=== PATIENT | female | born 1985 | race American Indian/Alaskan Native ===

== ENCOUNTER 2016-08-07 17:19 | Emergency (ER) | payer OTHER ==
[2016-08-07 18:58] LABS: Eosinophils % (Auto) 0.8 % (0.0-4.3); Hematocrit 35.5 % (30.3-42.9); Hemoglobin 11.1 gm/dl (10.1-14.3); Mean Corpuscular HGB Conc 31 % (30-34); Mean Corpuscular Volume 73 fl (79-97); Platelet Count 290 K/mm3 (140-440); Red Blood Count 4.88 M/mm3 (3.65-5.03); Red Cell Distribution Width 18.2 % (13.2-15.2); White Blood Count 8.2 K/mm3 (4.5-11.0)
[2016-08-07 19:15] LABS: Mean Corpuscular Hemoglobin 23 pg (28-32)
[2016-08-07 23:13] VITALS: BP 129/87
--- NOTE | 2016-08-08 00:15 | Emergency Department Report ---
HPI - General Chief Complaint: Vaginal Bleeding Time Seen by Provider: 08/07/16 23:58 - HPI HPI: Room 7 The patient is a 31-year-old female presenting with a chief complaint of vaginal bleeding. The patient states her last menstrual cycle occurred 2015. The patient states she is but has not yet seen an CHEMICAL ANALYTICAL SAMPLER. The patient states last week she had some vaginal spotting but 2 days ago she developed heavier vaginal bleeding. The patient states she's gone through approximately one panty liner a day. Patient states she also developed pelvic cramping. The patient states blood change from dark brown to red in color. The patient states she has noticed increased vaginal bleeding that has passed clots but no tissue. The patient complained of lower abdominal pain and left side pain associated with the vaginal bleeding. The patient states she has never seen an CHEMICAL ANALYTICAL SAMPLER or had an ultrasound for this Location: Pelvis Duration: [see above] Quality: Cramping Severity: Moderate Modifying factors: [see above] Context: [see above] Mode of transportation: [not driving] ED Past Medical Hx - Past Medical History Previous Medical History?: No - Surgical History Past Surgical History?: No - Family History Family history: no significant - Social History Smoking Status: Never Smoker Substance Use Type: None ED Review of Systems ROS: Stated complaint: 5 WKS PREG/BLEEDING/CRAMPS Other details as noted in HPI Comment: All other systems reviewed and negative Constitutional: denies: chills, fever Eyes: denies: eye pain, eye discharge, vision change ENT: denies: ear pain, throat pain Respiratory: denies: cough, shortness of breath, wheezing Cardiovascular: denies: chest pain, palpitations Endocrine: no symptoms reported Gastrointestinal: abdominal pain Genitourinary: abnormal menses Musculoskeletal: denies: back pain, joint swelling, arthralgia Skin: denies: rash, lesions Neurological: denies: headache, weakness, paresthesias Psychiatric: denies: anxiety, depression Hematological/Lymphatic: denies: easy bleeding, easy bruising Physical Exam - Physical Exam Vital Signs: Vital Signs 08/07/16 08/07/16 17:58 23:11 Temperature 98.2 F 97.6 F Pulse Rate 81 89 Respiratory 16 18 Rate Blood Pressure 152/114 Blood Pressure 129/87 [Right] O2 Sat by Pulse 100 100 Oximetry Physical Exam: GENERAL: The patient is well-developed well-nourished female lying on stretcher not appearing to be in acute distress. [] HEENT: Normocephalic. Atraumatic. Extraocular motions are intact. Patient has moist mucous membranes. NECK: Supple. Trachea midline CHEST/LUNGS: Clear to auscultation. There is no respiratory distress noted. HEART/CARDIOVASCULAR: Regular. There is no tachycardia. There is no gallop rub or murmur. ABDOMEN: Abdomen is soft. Patient has normal bowel sounds. There is no abdominal distention. SKIN: There is no rash. There is no edema. There is no diaphoresis. NEURO: The patient is awake, alert, and oriented. The patient is cooperative. The patient has normal speech MUSCULOSKELETAL: There is no evidence of acute injury. ED Course Vital Signs 08/07/16 08/07/16 17:58 23:11 Temperature 98.2 F 97.6 F Pulse Rate 81 89 Respiratory 16 18 Rate Blood Pressure 152/114 Blood Pressure 129/87 [Right] O2 Sat by Pulse 100 100 Oximetry ED Medical Decision Making - Lab Data Result diagrams: 08/07/16 18:32 Laboratory Tests 08/07/16 08/07/16 08/07/16 18:32 18:32 18:35 WBC 8.2 RBC 4.88 Hgb 11.1 Hct 35.5 MCV 73 L MCH 23 L MCHC 31 RDW 18.2 H Plt Count 290 Lymph % (Auto) 35.2 H [place] % (Auto) 11.4 H Eos % (Auto) 0.8 Baso % (Auto) 1.0 Lymph # 2.9 [place] # 0.9 H Eos # 0.1 Baso # 0.1 Seg Neutrophils % 51.6 Seg Neutrophils # 4.2 HCG, Quant 281.0 H Blood Type O NEGATIVE Antibody Screen Negative - Radiology Data Radiology results: report reviewed (pelvic ultrasound), image reviewed (pelvic ultrasound) Pelvic ultrasound (read by radiologist)-the uterus has a normal size. There is no evidence of a intrauterine at this time. Both ovaries have a normal appearance with a small dominant cyst identified on the left ovary. The findings may indicate multiple etiologies including early . The patient will need to be followed with serial beta hCG levels and possible repeat ultrasound in approximately 10-14 days - Differential Diagnosis threatened , spontaneous , ectopic Critical care attestation.: If time is entered above; I have spent that time in minutes in the direct care of this critically ill patient, excluding procedure time. ED Disposition Clinical Impression: , Vaginal bleeding, Threatened , Need for rhogam due to Rh negative mother Disposition: DISCHARGED TO HOME OR SELFCARE Is pt being admited?: No Does the pt Need Aspirin: No Condition: Stable Instructions: Ectopic (ED), Threatened Miscarriage (ED), Rho(D) Immune Globulin (Injection) Additional Instructions: Your hCG level today was 281 mIU/mL.this number should double every 48 hours. It is important that she return to the emergency department or follow-up with an CHEMICAL ANALYTICAL SAMPLER in 48 hours to have this number rechecked. At this time we are unable to rule out an ectopic which can be a very serious diagnosis. It is extremely important that you return to the emergency department or follow- up with CHEMICAL ANALYTICAL SAMPLER in 48 hours for further evaluation. Return to the emergency department immediately should you develop worsening symptoms, fever, inability to tolerate food or liquid or any other concerns. Referrals: PRIMARY CARE, [Primary Care Provider] - 3-5 Days TYRESE HICKMAN MD [Staff Physician] - 08/09/16 Time of Disposition: 01:34 (DC after ED RhoGAM)
--- NOTE | 2016-08-08 01:09 | Ultrasound Report ---
FINAL REPORT PROCEDURE: US OB transabdominal and transvaginal TECHNIQUE: Real-time transabdominal and transvaginal sonography of the uterus, placenta, amniotic fluid, adnexa, and fetus was performed with image documentation. Measurements were obtained to determine age/size. M-mode Doppler was used to document heartbeat. CPT 16956 and 76388 HISTORY: vaginal bleeding and pelvic cramping COMPARISON: No prior studies are available for comparison. FINDINGS: The uterus size is 8.2 x 4.9 x 6.2 centimeters. The endometrium is normal measuring 4.5 millimeters. No evidence of a gestational sac on this study. Both ovaries have a normal size. There is a dominant cyst on the left ovary this measures 14 millimeters. The findings may indicate multiple etiologies including early . This patient will need to be monitored with serial beta HCG levels and repeat ultrasound in approximately 10-14 days. IMPRESSION: The uterus has a normal size. There is no evidence of a intrauterine at this time. Both ovaries have a normal appearance with a small dominant cyst identified on the left ovary. The findings may indicate multiple etiologies including early . The patient will need to be followed with serial beta HCG levels and possible repeat ultrasound in approximately 10-14 days.
--- NOTE | 2016-08-08 01:09 | Ultrasound Report ---
FINAL REPORT PROCEDURE: US OB transabdominal and transvaginal TECHNIQUE: Real-time transabdominal and transvaginal sonography of the uterus, placenta, amniotic fluid, adnexa, and fetus was performed with image documentation. Measurements were obtained to determine age/size. M-mode Doppler was used to document heartbeat. CPT 62114 and 67382 HISTORY: vaginal bleeding and pelvic cramping COMPARISON: No prior studies are available for comparison. FINDINGS: The uterus size is 8.2 x 4.9 x 6.2 centimeters. The endometrium is normal measuring 4.5 millimeters. No evidence of a gestational sac on this study. Both ovaries have a normal size. There is a dominant cyst on the left ovary this measures 14 millimeters. The findings may indicate multiple etiologies including early . This patient will need to be monitored with serial beta HCG levels and repeat ultrasound in approximately 10-14 days. IMPRESSION: The uterus has a normal size. There is no evidence of a intrauterine at this time. Both ovaries have a normal appearance with a small dominant cyst identified on the left ovary. The findings may indicate multiple etiologies including early . The patient will need to be followed with serial beta HCG levels and possible repeat ultrasound in approximately 10-14 days. PROCEDURE: TECHNIQUE: HISTORY: COMPARISON: FINDINGS: IMPRESSION:
== END 2016-08-08 02:19 | disposition home or self-care (01) ==
LOC: ED 17:19
DX: O20.0 Threatened abortion (principal); O26.893 Other specified pregnancy related conditions, third trimester; Z67.41 Type O blood, Rh negative; Z3A.09 9 weeks gestation of pregnancy
CPT/HCPCS: 36415; 76801; 76817; 84702; 85025; 86850; 86900; 86901; 99284; J2790

== ENCOUNTER 2016-08-12 08:55 | Emergency (ER) | payer SELFPAY ==
[2016-08-12 09:08] VITALS: BP 129/73
[2016-08-12 09:39] LABS: Basophils % (Auto) 0.9 % (0.0-1.8); Eosinophils % (Auto) 1.1 % (0.0-4.3); Hemoglobin 10.7 gm/dl (10.1-14.3); Mean Corpuscular HGB Conc 31 % (30-34); Mean Corpuscular Volume 73 fl (79-97); Platelet Count 316 K/mm3 (140-440); Red Blood Count 4.79 M/mm3 (3.65-5.03); Red Cell Distribution Width 18.2 % (13.2-15.2); White Blood Count 6.4 K/mm3 (4.5-11.0)
--- NOTE | 2016-08-12 09:41 | Emergency Department Report ---
ED Recheck HPI - General Chief Complaint: Recheck/Abnormal Lab/Rx Stated Complaint: RECHECK HCG LEVEL/THREATENED MISCARRIAGE Source: patient Mode of arrival: Ambulatory Limitations: No Limitations - History of Present Illness Initial Comments: 31-year-old female return to the ED for repeat hCG. Patient states that her last menstrual period was 06/28/2016. Presented to the ED last week on August 17 with crampy lower abdominal pain and passing clots with vaginal bleeding. Patient states she currently has minimal to no pain only very scant spotting, denies any significant abdominal pain nausea vomiting fever or chills. States that bleeding is very minimal. Was seen by Dr. Rendon in ED on 08/07/16, has dc paperwork indicating for her to return to ED for HCG repeat level. Received RhoGAM on this visit. Complaint: abnormal lab Onset/Timin -: days(s) Returns Today for: other (repeat hCG level ectopic workup) Context: planned re-check Associated Symptoms: other (vaginal spotting) - Related Data Home Medications Medication Instructions Recorded Confirmed Last Taken No Known Home Medications [No 08/12/16 08/12/16 Unknown Reported Home Medications] Allergies Allergy/AdvReac Type Severity Reaction Status Date / Time No Known Allergies Allergy Verified 08/12/16 09:09 ED Review of Systems ROS: Stated complaint: RECHECK HCG LEVEL/THREATENED MISCARRIAGE Other details as noted in HPI Constitutional: denies: chills, fever Eyes: denies: eye pain, eye discharge, vision change ENT: denies: ear pain, throat pain Respiratory: denies: cough, shortness of breath, wheezing Cardiovascular: denies: chest pain, palpitations Endocrine: no symptoms reported Gastrointestinal: denies: abdominal pain, nausea, diarrhea Genitourinary: abnormal menses. denies: urgency, dysuria, discharge Musculoskeletal: denies: back pain, joint swelling, arthralgia Skin: denies: rash, lesions Neurological: denies: headache, weakness, paresthesias Psychiatric: denies: anxiety, depression Hematological/Lymphatic: denies: easy bleeding, easy bruising ED Past Medical Hx - Past Medical History Previous Medical History?: No - Surgical History Additional Surgical History: D & C 2011 - Social History Smoking Status: Never Smoker Substance Use Type: None - Medications Home Medications: Home Medications Medication Instructions Recorded Confirmed Last Taken Type No Known Home Medications [No 08/12/16 08/12/16 Unknown History Reported Home Medications] ED Physical Exam - General Limitations: No Limitations General appearance: alert, in no apparent distress - Head Head exam: Present: atraumatic, normocephalic - Eye Eye exam: Present: normal appearance, PERRL, EOMI - ENT ENT exam: Present: mucous membranes moist - Neck Neck exam: Present: normal inspection - Respiratory Respiratory exam: Present: normal lung sounds bilaterally. Absent: respiratory distress - Cardiovascular Cardiovascular Exam: Present: regular rate, normal rhythm. Absent: systolic murmur, diastolic murmur, rubs, gallop - GI/Abdominal GI/Abdominal exam: Present: soft, normal bowel sounds - Extremities Exam Extremities exam: Present: normal inspection - Back Exam Back exam: Present: normal inspection - Neurological Exam Neurological exam: Present: alert, oriented X3 - Psychiatric Psychiatric exam: Present: normal affect, normal mood - Skin Skin exam: Present: warm, dry, intact, normal color. Absent: rash ED Course Vital Signs 08/12/16 09:05 Temperature 97.9 F Pulse Rate 81 Respiratory 17 Rate Blood Pressure 129/73 O2 Sat by Pulse 100 Oximetry ED Recheck MDM - Medical Decision Making A/P: Miscarriage, ectopic workup, visit for repeat blood work 1-I discussed case with Dr. Valdivia, patient has minor reduction and hCG level, currently does not have any clinical symptoms of ruptured ectopic, no abdominal pain reported minimal to no vaginal bleeding. As per Dr. Valdivia patient to follow up with outpatient INTEGRATION TECHNICIAN. I made sure patient has referral information and emphasized the importance of her getting repeat blood work within 3-5 days to check her hCG level. I gave patient strict instructions to return to the ED for any vaginal hemorrhage severe abdominal pain fever chills or worsening crampy lower abdominal pain. Patient understood these instructions and agreed to this plan. I advised patient that if for the reason she cannot follow up with OB this week and return here for repeat blood work and hCG level. Critical care attestation.: If time is entered above; I have spent that time in minutes in the direct care of this critically ill patient, excluding procedure time. ED Disposition Clinical Impression: Vaginal bleeding, Miscarriage Disposition: DISCHARGED TO HOME OR SELFCARE Is pt being admited?: No Does the pt Need Aspirin: No Condition: Stable Instructions: Spontaneous Miscarriage (ED), Ectopic (ED) Additional Instructions: Patient advised to follow-up with MARKETING TRAFFIC COORDINATOR and call for appointment as soon as possible and get appointment within the next week for repeat hCG as an outpatient. I advised patient that if for whatever reason she cannot follow-up with INTEGRATION TECHNICIAN to return to the ED. Patient given strict instructions to return to the ED for any vaginal bleeding severe abdominal pain, persistent nausea vomiting fever or chills. Patient understood these instructions when I spoke with her. Referrals: PRIMARY CAREMD [Primary Care Provider] - 3-5 Days LISA TREVIZO MD [Staff Physician] - 3-5 Days [facility] [Provider Group] - 3-5 Days Time of Disposition: 10:30
[2016-08-12 09:49] LABS: Anion Gap 19 mmol/L; BUN/Creatinine Ratio 8.57; Blood Urea Nitrogen 6 mg/dL (7-17); Calcium 9.3 mg/dL (8.4-10.2); Carbon Dioxide 23 mmol/L (22-30); Chloride 101.3 mmol/L (98-107); Glucose 93 mg/dL (65-100); Sodium 139 mmol/L (137-145)
[2016-08-12 09:51] LABS: Alanine Aminotransferase 6 units/L (7-56); Albumin 4.3 g/dL (3.9-5); Albumin/Globulin Ratio 1.3 %; Alkaline Phosphatase 75 units/L (35-129); Bilirubin,Total 0.2 mg/dL (0.1-1.2); Total Protein 7.5 g/dL (6.3-8.2)
[2016-08-12 09:52] LABS: Bilirubin,Direct < 0.2 mg/dL (0-0.2)
[2016-08-12 10:20] LABS: Mean Corpuscular Hemoglobin 22 pg (28-32)
== END 2016-08-12 10:39 | disposition home or self-care (01) ==
LOC: ED 08:55
DX: O03.9 Complete or unspecified spontaneous abortion without complication (principal); Z3A.00 Weeks of gestation of pregnancy not specified
CPT/HCPCS: 36415; 80048; 80074; 84702; 85025; 86850; 86870; 86900; 86901; 99283